=== PATIENT | male | born 1945 | race Caucasian/White ===

== ENCOUNTER → 2019-07-18 11:08 | Outpatient (CLI) | payer MEDICARE, SELFPAY ==
[2019-07-18 11:24] LABS: Basophils # 0.1 K/mm3 (0-0.2); Basophils % 0.4 % (0.1-2.0); Eosinophils # 0.2 K/mm3 (0.0-0.4); Eosinophils % 1.2 % (0.1-12.0); Hematocrit 44.7 % (42.0-52.0); Hemoglobin 14.7 g/dL (14.1-18.0); Lymphocytes # 2.5 K/mm3 (0.7-4.5); Lymphocytes % 19.9 % (10-50); Mean Corpuscular HGB Conc 32.9 g/dL (31.8-35.4); Mean Corpuscular Hemoglobin 31.6 pg (27.0-31.2); Mean Corpuscular Volume 95.9 fl (80-94); Mean Platelet Volume 6.7 fl (7.4-10.4); Monocytes # 0.9 K/mm3 (0.1-1.0); Monocytes % 7.4 % (1.7-9.3); Neutrophils % 71.1 % (37.0-80.0); Platelet Count 286 K/mm3 (142-424); Red Blood Count 4.66 M/mm3 (4.60-6.20); Red Cell Distribution Width 13.2 % (11.5-17.5); White Blood Count 12.7 K/mm3 (4.8-10.8)
[2019-07-18 12:36] LABS: Anion Gap 14.1 mEq/L (5-15); Blood Urea Nitrogen 13 mg/dL (7-18); Calcium 9.3 mg/dL (8.5-10.1); Carbon Dioxide 29 mmol/L (21.0-32.0); Chloride 98 mmol/L (98-107); Estimated Glomerular Filt Rate 65 ml/min (>60); GFR (African American) 79 ML/MIN (>60); Glucose 107 mg/dL (74-106); Potassium 4.1 mmoL/L (3.5-5.1); Sodium 137 mmol/L (136-145); Thyroid Stimulating Hormone 5.75 uIU/ml (0.358-3.740)
== END ==
PROVIDERS: Visit Provider Internal Medicine Adolescent Medicine
DX: R41.0 Disorientation, unspecified (principal)
CPT/HCPCS: 36415; 80048; 84443; 85025

== ENCOUNTER → 2019-09-03 11:07 | Outpatient (CLI) | payer MEDICARE, SELFPAY ==
[2019-09-03 11:43] LABS: Basophils # 0.1 K/mm3 (0-0.2); Basophils % 0.7 % (0.1-2.0); Eosinophils # 0.4 K/mm3 (0.0-0.4); Eosinophils % 4.8 % (0.1-12.0); Hematocrit 40.5 % (42.0-52.0); Hemoglobin 13.2 g/dL (14.1-18.0); Lymphocytes # 2.5 K/mm3 (0.7-4.5); Lymphocytes % 29.1 % (10-50); Mean Corpuscular HGB Conc 32.6 g/dL (31.8-35.4); Mean Corpuscular Hemoglobin 30.5 pg (27.0-31.2); Mean Corpuscular Volume 93.6 fl (80-94); Mean Platelet Volume 7.2 fl (7.4-10.4); Monocytes # 0.5 K/mm3 (0.1-1.0); Monocytes % 5.8 % (1.7-9.3); Neutrophils # 5.2 K/mm3 (1.8-7.8); Neutrophils % 59.6 % (37.0-80.0); Platelet Count 247 K/mm3 (142-424); Red Blood Count 4.32 M/mm3 (4.60-6.20); Red Cell Distribution Width 13.5 % (11.5-17.5); White Blood Count 8.7 K/mm3 (4.8-10.8)
[2019-09-03 15:29] LABS: Alanine Aminotransferase 15 U/L (12-78); Albumin Level 3.8 gm/dL (3.4-5.0); Alkaline Phosphatase 66 U/L (46-116); Anion Gap 12.7 mEq/L (5-15); Aspartate Amino Transferase 16 U/L (15-37); Bilirubin,Total 0.4 mg/dL (0.2-1.0); Blood Urea Nitrogen 10 mg/dL (7-18); Calcium 9.1 mg/dL (8.5-10.1); Carbon Dioxide 30 mmol/L (21.0-32.0); Chloride 103 mmol/L (98-107); Creatinine,Serum 1.15 mg/dL (0.70-1.30); Estimated Glomerular Filt Rate 62 ml/min (>60); Free Thyroxine Index 2.7 ug/dL (5.93-13.13); GFR (African American) 75 ML/MIN (>60); Glucose 92 mg/dL (74-106); Potassium 4.7 mmoL/L (3.5-5.1); Sodium 141 mmol/L (136-145); Thyroid Stimulating Hormone 1.42 uIU/ml (0.358-3.740); Total Protein,Serum 7.8 gm/dL (6.4-8.2); Triiodothryronine (T3) Uptake 34 % (31-39)
[2019-09-04 17:16] LABS: Vitamin B12 256 pg/mL (232-1245)
== END ==
PROVIDERS: Visit Provider Internal Medicine Adolescent Medicine
DX: E03.9 Hypothyroidism, unspecified (principal); E53.8 Deficiency of other specified B group vitamins; I25.10 Atherosclerotic heart disease of native coronary artery without angina pectoris
CPT/HCPCS: 36415; 80053; 82607; 84436; 84443; 84479; 85025

== ENCOUNTER 2020-12-16 11:55 | Observation (INO) | payer MEDICARE, SELFPAY ==
[2020-12-16] VITALS (24 sets, daily range): BP systolic 87–140; BP diastolic 45–84; PULSE 60–88; RESP 13–22; TEMP 36.7–37.2; O2SAT 90–99; BMI 23.6; BMI 25.2
--- NOTE | 2020-12-16 | IR_ITS ---
APPROVED REPORT [facility] Manager: SUNNY Guerrero RT (R) PROCEDURES Left heart catheterization Left ventriculogram Selective coronary angiogram INDICATION Acute anterior ST elevation myocardial infarction Informed consent was obtained prior to the procedure. COMPLICATIONS None Estimated Blood Loss: less than 10ml TECHNIQUE One percent lidocaine used to anesthetize the right anterior aspect of the wrist. The right radial artery was accessed via the Seldinger technique. A 6 [place] sheath was placed in the right radial artery. 2.5 mg of verapamil, 800 mcg of nitroglycerin, 1mg Lidocaine and 5000 U Heparin were given through the arterial sheath. The Poppa catheter was also used to perform left heart catheterization, left ventriculogram and selective coronary angiogram. At the end of the procedure the sheath was removed good hemostasis was achieved using Traclet band, patient was transferred to the postop holding area in stable condition. ANGIOGRAPHIC RESULTS The left main artery Normal The left anterior descending artery Has mild proximal 10% stenoses mid vessel 10 to 20% stenosis. A moderate sized first diagonal artery has a 30 to 40% stenosis The circumflex artery Is a large codominant vessel with mild mid vessel 20% stenoses The right coronary artery Is a codominant vessel with proximal and mid vessel 20% stenosis there is a distal concentric 30% stenosis and a 40% stenosis in the posterior descending artery The ROBLES ventriculogram reveals Hyperdynamic at 70% The left ventricular end-diastolic pressure 10 mmHg IMPRESSION Nonflow-limiting coronary disease Slightly hyperdynamic ventricle Normal left ventricular end-diastolic pressure Patient most likely is experiencing pericarditis. If the troponins turn positive then there is pericarditis combined with myocarditis. PLAN 1. Supportive care 2. Echocardiogram to determine if pericardial effusion is present Electronically signed by : Eliseo Aldridge, 12/16/2020 13:48:37
--- NOTE | 2020-12-16 12:39 | HMH.EDABDPAI ---
ED Disposition Clinical Impression: Weakness Disposition: Still a Patient Condition on Discharge: Fair Time of Disposition: 14:07 - Critical Care Critical Care Time: Yes (STEMI) Attestation: On 12/16/20, the high probability of a clinically significant, sudden or life threatening deterioration of the following system(s) required my full and direct attention, intervention and personal management. The time I documented below is in addition to time spent performing reported procedures but includes the following listed in this critical care notation. Total Critical Care Time: 35 Vital system(s) involved:: Circulatory Failure My critical care processes included: Assessment & monitoring of V/S, Data Review/Interpretation, Documentation Comment: No circulatory failure, but Code STEMI activated Medical Decision Making - Efra Inquiry Pt receiving controlled substance: No Vital Signs: 12/16/20 11:56 12/16/20 12:26 12/16/20 13:00 Temperature 98.9 F Temperature Source Oral Pulse Rate Pulse Rate [Left Radial] 78 78 80 Respiratory Rate 18 22 Blood Pressure Blood Pressure [Right Arm] 140/84 116/69 125/76 Blood Pressure Mean [Right Arm] 102 84 92 Blood Pressure Source Blood Pressure Source [Right Arm] Automatic Cuff Automatic Cuff Automatic Cuff Blood Pressure Position Blood Pressure Position [Right Arm] Sitting Sitting Sitting 02 Sat by Pulse Oximetry 99 90 L Oxygen Delivery Method Room Air Room Air 12/16/20 13:25 12/16/20 13:37 12/16/20 13:40 Temperature 98.9 F Temperature Source Oral Pulse Rate 80 Pulse Rate [Left Radial] 84 84 Respiratory Rate 20 13 16 Blood Pressure 125/76 Blood Pressure [Right Arm] 92/51 L 90/45 L Blood Pressure Mean [Right Arm] 64 60 Blood Pressure Source Automatic Cuff Blood Pressure Source [Right Arm] Blood Pressure Position Sitting Blood Pressure Position [Right Arm] 02 Sat by Pulse Oximetry 95 93 L Oxygen Delivery Method Room Air Simple Mask Simple Mask 12/16/20 13:45 12/16/20 13:50 12/16/20 13:51 Temperature Temperature Source Pulse Rate 78 Pulse Rate [Left Radial] 84 80 Respiratory Rate 14 17 Blood Pressure Blood Pressure [Right Arm] 87/47 L 101/51 L Blood Pressure Mean [Right Arm] 60 67 Blood Pressure Source Blood Pressure Source [Right Arm] Blood Pressure Position Blood Pressure Position [Right Arm] 02 Sat by Pulse Oximetry 95 97 Oxygen Delivery Method Simple Mask Simple Mask - Lab Data Lab Results 12/16/20 12:52: WBC 13.2 H, RBC 4.61, Hgb 14.4, Hct 43.5, MCV 94.5 H, MCH 31.2, MCHC 33.1, RDW 15.1, Plt Count 301, MPV 7.2 L, Neut % (Auto) 80.1 H, Lymph % (Auto) 13.2, [place] % (Auto) 6.3, Eos % (Auto) 0.1, Baso % (Auto) 0.3, Neut # (Auto) 10.6 H, Lymph # (Auto) 1.8, [place] # (Auto) 0.8, Eos # (Auto) 0.0, Baso # (Auto) 0.0 12/16/20 12:52: Sodium 135 L, Potassium 4.3, Chloride 99, Carbon Dioxide 29, Anion Gap 11.3, BUN 12, Creatinine 1.10, Estimated Creat Clear 61, Estimated GFR 65, Est GFR ( Amer) 79, Glucose 125 H, Calcium 9.6, Total Bilirubin 1.6 H, AST 27, ALT 16, Alkaline Phosphatase 76, Troponin I < 0.01, Total Protein 8.7 H, Albumin 4.4, Globulin 4.3 H, Albumin/Globulin Ratio 1.0 L, Lipase 56 Result diagrams: 12/16/20 12:52 12/16/20 12:52 Orders (Tests/Meds): ED MEDICATIONS Generic Name Dose Route Start Last Admin Trade Name Freq PRN Reason Stop Dose Admin Fentanyl Citrate 25 mcg 12/16/20 13:06 12/16/20 13:26 Fentanyl 100mcg/2ml Vial IV 12/17/20 13:08 100 mcg Q3MINP PRN Administration Moderate to Severe Pain Fentanyl Citrate 50 mcg 12/16/20 13:06 Fentanyl 100mcg/2ml Vial IV 12/17/20 13:08 Q3MINP PRN Moderate to Severe Pain Fentanyl Citrate 25 mcg 12/16/20 13:06 Fentanyl 250mcg/5ml Vial IV 12/17/20 13:07 Q3MINP PRN Moderate to Severe Pain Fentanyl Citrate 50 mcg 12/16/20 13:06 Fentanyl 250mcg/5ml Vial IV 12/17/20 13:07 Q3MIN
--- NOTE | 2020-12-16 13:02 | ECG_ITS ---
APPROVED REPORT Exam: Resting ECG HR:88 bpm ECG Measurements Heart Rate 88 AXES QRSd 124 QRS -3 QT 400 T 25 QTc 484 Conclusion NSR with Right bundle branch block Artifact limits interpretation Abnormal ECG Electronically signed by : Perico Brady, 12/16/2020 16:33:15
--- NOTE | 2020-12-16 13:03 | PC.NURSE ---
12 lead EKG sent to [facility].
--- NOTE | 2020-12-16 13:05 | PC.NURSE ---
Luis Carlos called and confirmed STEMI. STEMI alert called over head at this time.
[2020-12-16 13:10] LABS: Basophils % 0.3 % (0.1-2.0); Chloride 99 mmol/L (98-107); Eosinophils % 0.1 % (0.1-12.0); Hematocrit 43.5 % (42.0-52.0); Hemoglobin 14.4 g/dL (14.1-18.0); Lymphocytes # 1.8 K/mm3 (0.7-4.5); Lymphocytes % 13.2 % (10-50); Mean Corpuscular HGB Conc 33.1 g/dL (31.8-35.4); Mean Corpuscular Hemoglobin 31.2 pg (27.0-31.2); Mean Corpuscular Volume 94.5 fl (80-94); Mean Platelet Volume 7.2 fl (7.4-10.4); Monocytes # 0.8 K/mm3 (0.1-1.0); Monocytes % 6.3 % (1.7-9.3); Neutrophils # 10.6 K/mm3 (1.8-7.8); Neutrophils % 80.1 % (37.0-80.0); Platelet Count 301 K/mm3 (142-424); Red Blood Count 4.61 M/mm3 (4.60-6.20); Red Cell Distribution Width 15.1 % (11.5-17.5); Sodium 135 mmol/L (136-145); White Blood Count 13.2 K/mm3 (4.8-10.8)
[2020-12-16 13:11] LABS: Potassium 4.3 mmoL/L (3.5-5.1)
[2020-12-16 13:13] LABS: Alanine Aminotransferase 16 U/L (12-78); Alkaline Phosphatase 76 U/L (38-126); Anion Gap 11.3 mEq/L (5-15); Aspartate Amino Transferase 27 U/L (17-59); Bilirubin,Total 1.6 mg/dl (0.2-1.3); Blood Urea Nitrogen 12 mg/dl (9-20); Carbon Dioxide 29 mmol/L (22.0-30.0); Creatinine Clearance Estimated 61 mL/min (50-200); Estimated Glomerular Filt Rate 65 ml/min (>60); GFR (African American) 79 ML/MIN (>60); Lipase 56 U/L (23-300)
[2020-12-16 13:14] LABS: Albumin Level 4.4 g/dl (3.5-5.0); Calcium 9.6 mg/dl (8.4-10.2); Globulin 4.3 g/dL (1.3-3.2); Glucose 125 mg/dl (74-100); Total Protein,Serum 8.7 g/dl (6.3-8.2)
--- NOTE | 2020-12-16 13:18 | PC.NURSE ---
Acute [place] shown on EKG, Sent to Luis Carlos.. Luis Carlos called stating this was a Stemi to bring pt to airport maintenance laborer at this moment. Pt taken to airport maintenance laborer for further intervention.
--- NOTE | 2020-12-16 13:18 | PC.NURSE ---
office staff states dr. rey is off today and dr. perkins is not in the office at this time. screen printing machine operator paging dr. perkins
[2020-12-16 13:26] LABS: Troponin I < 0.01 ng/ml (0.00-0.034)
--- NOTE | 2020-12-16 13:26 | HMH.CNCARD ---
History of Present Illness Consult date: 12/16/20 Consult reason: chest pain Chief complaint: STEMI Additional Medical History:: 1. HTN 2. Hypothyroid 3. History of skin canceer 4. Dementia History of present illness: 75yo M with past medical history significant for hypothyroid, recent Covid presents to the emergency department acting brought in by his with complaints of abdominal pain. Family reports the patient was constipated and started on a bowel regimen and now has loose stool. Patient reports I hurt everywhere. He is unable to further differentiate or delineate any symptoms he is having. Family reports the patient has been less mobile since he had Covid. Patient is unable to provide any additional information at this time. The above per ER MD, Dr. Vo. Pt has dementia so pertinent history obtained from chart and family. [facility] History Medical History: Reports:: Cancer (SKIN) *Have you ever received a pneumonia vaccine?: No *Have you received a flu vaccine this season?: No - *Social History Smoking Status: Current every day smoker Tobacco Type: cigarettes # Packs/Day (cigarettes): 1 Alcohol Intake: never *Occupational Status:: retired Housing: house Household Members: spouse *Travel in the last 8 weeks: Inside the [facility] Family Hx:: Non-contributory Meds Home Medications Medication Instructions Recorded Confirmed Type Aspirin [Aspir 81] 81 mg PO DAILY 10/08/19 10/08/19 History Levothyroxine Sodium 50 mcg PO DAILY 10/08/19 10/08/19 History [Levothyroxine 50mcg (0.05mg) Tab] Omeprazole 20 mg PO DAILY 10/08/19 10/08/19 History Allergies Allergy/AdvReac Type Severity Reaction Status Date / Time No Known Allergies Allergy Verified 12/30/19 11:34 Exam Vital signs and Labs for Last 24 Hours: Temp Pulse Resp BP Pulse Ox 98.9 F 80 22 125/76 90 L 12/16/20 11:56 12/16/20 13:00 12/16/20 12:26 12/16/20 13:00 12/16/20 12:26 Laboratory Results - last 24 hr 12/16/20 12:52: WBC 13.2 H, RBC 4.61, Hgb 14.4, Hct 43.5, MCV 94.5 H, MCH 31.2, MCHC 33.1, RDW 15.1, Plt Count 301, MPV 7.2 L, Neut % (Auto) 80.1 H, Lymph % (Auto) 13.2, [place] % (Auto) 6.3, Eos % (Auto) 0.1, Baso % (Auto) 0.3, Neut # (Auto) 10.6 H, Lymph # (Auto) 1.8, [place] # (Auto) 0.8, Eos # (Auto) 0.0, Baso # (Auto) 0.0 12/16/20 12:52: Sodium 135 L, Potassium 4.3, Chloride 99, Carbon Dioxide 29, Anion Gap 11.3, BUN 12, Creatinine 1.10, Estimated Creat Clear 61, Estimated GFR 65, Est GFR ( Amer) 79, Glucose 125 H, Calcium 9.6, Total Bilirubin 1.6 H, AST 27, ALT 16, Alkaline Phosphatase 76, Total Protein 8.7 H, Albumin 4.4, Globulin 4.3 H, Albumin/Globulin Ratio 1.0 L, Lipase 56 I & O for Last 24 hours: Intake & Output 12/14/20 12/15/20 12/16/20 12/17/20 11:59 11:59 11:59 11:59 Weight 165 lb - Constitutional no acute distress - *Routine HEENT Exam Head: Present: normocephalic Eye: Present: EOMI, PERRL ENT: Present: mucous membranes moist - *Routine Neck Exam Present: supple. Absent: lymphadenopathy - *Routine Respiratory Exam Present: CTA bilaterally - *Routine Cardiovascular Exam Present: RRR - *Routine Abdominal Exam Present: soft, normoactive bowel sounds. Absent: tenderness - *Routine Extremities Exam Absent: cyanosis, clubbing, edema - *Routine Skin Exam Present: warm. Absent: rash - *Routine Neurological Exam Present: alert, oriented X3 Review of Systems - Review of Systems Review of systems:: unable to obtain Assessment and Plan (1) STEMI (ST elevation myocardial infarction) Status: Acute Category: Medical Code(s): I21.3 - ST elevation (STEMI) myocardial infarction of unspecified site (2) Hypothyroidism Status: Acute Category: Medical Code(s): E03.9 - Hypothyroidism, unspecified (3) History of COVID-19 Status: Acute Category: Medical Code(s): Z86.16 - Personal history of COVID-19 (4) Dementia Status: Acute Qualifiers:
--- NOTE | 2020-12-16 13:40 | CA_ITS ---
APPROVED REPORT EXAM: Comprehensive 2D, Doppler, and color-flow Echocardiogram Patient Relations Specialist: Amy Gusman RVT Ht: 5 ft 10 in Wt: 165lbs BSA: 1.92 BP: 116/69 mmHg Indications: STEMI,RECENT COVID,R/O PERICARDITIS,HTN,SMOKER,DEMENTIA TDS-PT FLAT ON BACK POST CATH 2D Dimensions LVOT 1.70 cm (M/F) 1.5-2.5 M-Mode Dimensions RVDd 2.42 cm (0.9-2.6) LA Diam 4.16 cm (1.9-4.0) LVDd 4.88 cm (3.5-5.7) Ao Diam 2.98 cm (2.0-3.7) LVDs 3.61 cm (3.5-5.7) IVSd 0.76 cm (0.6-1.1) PWd 1.10 cm (0.6-1.1) EF (Teich) 50.90% FS 26.00% EDV (Teich) 111.70 mL ESV (Teich) 54.80 mL LV Diastology E Decel Time 200.00 (160-240 msec) E/A Ratio 0.9 MED E' 7.00 (< 7 cm/sec) E'/MED E' Ratio 7.40 (>14) LAT E' 6.80 (<10 cm/sec) E/LAT E' Ratio 7.62 (>14) Mitral Valve MV E Max Alli. 52.00 (40-130 cm/s) MV A Velocity 61.00 (40-130 cm/s) E/A Ratio 0.85 MV Decel. Time 200.00 (160-240 ms) MV PHT 59.00 ms Pulmonary Valve PV Peak Velocity 73.00 (50-150 cm/s) Left Ventricle Technically difficult study because of the patient factors and poor acoustic windows. Left atrium is mildly enlarged, left ventricle is normal size, mild concentric left ventricular hypertrophy, visually estimated ejection fraction 55% with no regional wall motion abnormality. Grade 1 diastolic dysfunction seen without tissue Doppler evidence of raise left atrial pressure. Right Ventricle Right atrium and right ventricle are mildly enlarged with normal contractility. Aortic Valve Aortic valve is thickened and calcified leaflet continue to display mobility, there is no aortic stenosis or aortic insufficiency. Mitral Valve Mitral valve is grossly normal, there is mild mitral regurgitation. Tricuspid Valve Tricuspid valve grossly normal, there is mild tricuspid regurgitation, tricuspid regurgitation jet velocity is inadequate for calculation of the right ventricular systolic pressure. Pulmonic Valve Pulmonic valve is poorly visualized. Great Vessels Aortic root is normal size. Pericardium No significant pericardial effusion noted. Conclusion 1. Mild biatrial enlargement, normal left ventricular size, mild concentric left ventricular hypertrophy, visually estimated ejection fraction 55% with no regional wall motion abnormality, grade 1 diastolic dysfunction seen without tissue Doppler evidence of raise left atrial pressure. 2. Mildly enlarged right ventricle with normal contractility. 3. Thickened and calcified aortic valve without aortic stenosis or aortic insufficiency. 4. Mild mitral and tricuspid regurgitation. 5. No significant pericardial effusion noted. Electronically signed by : Anibal Zapata, 12/16/2020 19:53:36
[2020-12-16 14:42] LABS: Coronavirus 19 IgG Antibody Positive (Negative); Coronavirus 19 IgM Antibody Negative (Negative)
--- NOTE | 2020-12-16 14:57 | PC.NURSE ---
giuseppe brought patient from lab asst
--- NOTE | 2020-12-16 15:07 | PC.NURSE ---
pt has cup at bedside. pt still well sedated from r and d lab technician.
--- NOTE | 2020-12-16 16:14 | CT_ITS ---
PROCEDURE: CT ABDOMEN PELVIS W CON CLINICAL INDICATION: abdominal pain Constipation, unknown hx due to pt condition COMPARISON: No exams were available for comparison TECHNIQUE: IV Contrast: 75ML Isovue 370 Oral Contrast None Axial images obtained with sagittal and coronal reformats. All CT scans at the facility use one or more dose reduction, viz: automated exposure control, ma/kV adjustment per patient size (including targeted exams where dose is matched to indication, i.e. head), or iterative reconstruction technique. FINDINGS: LOWER THORAX: There are small bilateral pleural effusions left greater than right with adjacent compressive atelectasis. A small rounded lucency is noted within the atelectatic lung right and may represent a small pneumatocele. Coronary artery calcifications and/or stents noted ABDOMEN & PELVIS: The liver, gallbladder, spleen, adrenal glands, pancreas, and kidneys have an unremarkable appearance. There is mild ectasia of the mid abdominal aorta 2.2 cm. No evidence of appendicitis or diverticulitis. No intestinal obstruction or free air. There is a mild amount of retained colonic feces. Prostate is slightly enlarged at 4.8 cm. Osteoarthritic changes are present in the hips. There is grade 1 spondylitic spondylolisthesis at L5-S1 with degenerative changes noted in the lumbar spine. There is a tiny umbilical hernia containing fat. IMPRESSION: 1. No acute abdominal or pelvic findings. 2. Bibasilar atelectasis with small bilateral pleural effusions 3. Other nonacute findings as described above Dictated by: Herber Wood MD 12/17/2020 05:03 Herber Wood MD in [place] 12/17/2020 05:03
--- NOTE | 2020-12-16 16:27 | HMH.PHAVTE ---
[facility] Pharmacy VTE Monitoring - Patient Demographics Admission date: 12/16/20 Report Date: 12/16/20 Time: 16:27 Allergies/Adverse Reactions: Patient Allergies No Known Allergies Allergy (Verified 12/16/20 14:27) Height: 1.7 m Weight: 73.198 kg Patient Problems: Current Active Problems Dementia (Acute) STEMI (ST elevation myocardial infarction) (Acute) Hypothyroidism (Acute) History of COVID-19 (Acute) Weakness (Acute) - VTE Risk Labs: VTE Related Lab Results Hgb 14.4 g/dL (14.1-18.0) 12/16/20 12:52 Hct 43.5 % (42.0-52.0) 12/16/20 12:52 Plt Count 301 K/mm3 (142-424) 12/16/20 12:52 BUN 12 mg/dl (9-20) 12/16/20 12:52 Creatinine 1.10 mg/dl (0.66-1.25) 12/16/20 12:52 Estimated Creat Clear 61 mL/min (50-200) 12/16/20 12:52 - Prophylaxis VTE Prophylaxis Ordered?: Yes Types of VTE Prophylaxis: TEDS Knee High Location of Applied Device: Bilateral Lower Extremeties
--- NOTE | 2020-12-16 17:15 | HMH.HP ---
*Admission Date: 12/16/20 *Chief complaint: abdominal pain *History of present illness: Mr. Carlos is an irritable 75-year-old gentleman with dementia, hypothyroid, recent Covid diagnosis who presented to the emergency department via his with complaint of abdominal pain. Of note he was seen in our office on Saturday for the same complaint and at that time determined to be constipated as he had not had a bowel movement in over 5 days. He was started on stool softener and bowel regimen with goal of 1-2 soft bowel movements a day. On arrival to the ER his family reported similarly to above that Mr. Carlos was constipated and started on a bowel regimen and now has loose stool. Patient reports I hurt everywhere. He is unable to further differentiate or delineate any symptoms he is having. Family reported he has been less active than usual because of his recent Covid diagnosis and has been more fatigued. Patient is unable to provide any additional information on interview. ER work-up initiated including basic labs, EKG. Concern on EKG for acute NM, troponin normal (nondetectable), mild leukocytosis, and positive Covid IgG. Due to suspicious findings on EKG, STEMI alert was activated and patient was taken to the Entry Level. Per cath report, IMPRESSION: Nonflow-limiting coronary disease Slightly hyperdynamic ventricle Normal left ventricular end-diastolic pressure Patient most likely is experiencing pericarditis. If the troponins turn positive then there is pericarditis combined with myocarditis. PLAN 1. Supportive care 2. Echocardiogram to determine if pericardial effusion is present. Extensive discussion was had given the above findings, in the setting of still unclear etiology of patient's pain, it was determined the patient needed further assessment and observation prior to being deemed clinically stable for discharge home. Patient was therefore admitted to medicine for further management given his absence of NM. [facility] History I have reviewed the patient's past medical history: Yes (Obtained from our clinic charts) Medical History: Reports:: Cancer (SKIN), Coronary Artery Disease, Dementia *Have you ever received a pneumonia vaccine?: Yes *Have you received a flu vaccine this season?: Yes Other Medical History: Reports: Hypothyroidism Other Surgeries: Yes: Angioplasty, Appendectomy - *Social History Smoking Status: Current every day smoker Tobacco Type: cigarettes # Packs/Day (cigarettes): 1 Alcohol Intake: never *Occupational Status:: retired Housing: house Household Members: spouse *Travel in the last 8 weeks: None Family Hx:: Unable to obtain Review of Systems - Review of Systems Review of systems:: unable to obtain (Due to patient's mental status) Meds Home Medications Medication Instructions Recorded Confirmed Type Aspirin [Aspir 81] 81 mg PO DAILY 10/08/19 12/16/20 History Levothyroxine Sodium 50 mcg PO DAILY 10/08/19 12/16/20 History [Levothyroxine 50mcg (0.05mg) Tab] Omeprazole 20 mg PO DAILY 10/08/19 12/16/20 History Citalopram Hydrobromide 20 mg PO HS 12/16/20 12/16/20 History [Citalopram 20mg Tablet] Donepezil HCl [Donepezil ODT 10mg] 10 mg PO HS 12/16/20 12/16/20 History Quetiapine Fumarate [Quetiapine 25 mg PO NEEDED PRN 12/16/20 12/16/20 History Fumarate ER] Allergies Allergy/AdvReac Type Severity Reaction Status Date / Time No Known Allergies Allergy Verified 12/16/20 14:27 Exam Vital signs and Labs for Last 24 Hours: Temp Pulse Resp BP Pulse Ox 98.0 F 60 16 98/62 L 90 L 12/16/20 15:26 12/16/20 16:00 12/16/20 15:26 12/16/20 15:26 12/16/20 15:26 Laboratory Results - last 24 hr 12/16/20 12:52: WBC 13.2 H, RBC 4.61, Hgb 14.4, Hct 43.5, MCV 94.5 H, MCH 31.2, MCHC 33.1, RDW 15.1, Plt Count 301, MPV 7.2 L, Neut % (Auto) 80.1 H, Lymph % (Auto) 13.2, [place] % (Auto) 6.3, Eos % (Auto) 0.1, Baso % (Auto) 0.3, Neut # (Auto) 10.6 H, Lymph # (Auto) 1.8, [place] # (A
[2020-12-16 17:18] LABS: Troponin I < 0.01 ng/ml (0.00-0.034)
--- NOTE | 2020-12-16 19:11 | PC.NURSE ---
PT BACK TO THE FLOOR VIA BED FROM [facility] W/STAFF AT THIS TIME
[2020-12-16 20:20] LABS: Troponin I < 0.01 ng/ml (0.00-0.034)
[2020-12-17] VITALS: BP 118/60; PULSE 106; PULSE 80; RESP 22; TEMP 37.3; O2SAT 92
--- NOTE | 2020-12-17 03:59 | PC.NURSE ---
Pt has been very irritable and combative with care this shift. When attempting to care for pt, he uses profanity very loudly and attempts to grab at staff. Pt has pulled at his IV with new one replaced. Pt attempted to pull out new PIV, coband wrapped around PIV to ensure it stays patent and in place. Pt has had two very large, loose bowel movements this shift. Lt radial cath site dressing remains CDI, with no hematoma noted. Pt offered a dinner tray at the beginning of shift, and when staff attempted to feed him, pt would yell at them to get out . Lung sounds remain diminished t/o w/ coarse crackles noted to Bilat bases. No cough noted this shift. NO edema noted to extremities. No other acute changes or complaints at this time.
[2020-12-17 04:00] VITALS: BP 133/60; PULSE 75; PULSE 80; RESP 16; TEMP 37.3; O2SAT 91
[2020-12-17 04:57] VITALS: BMI 24.1
[2020-12-17 07:13] LABS: Basophils # 0.1 K/mm3 (0-0.2); Basophils % 0.4 % (0.1-2.0); Eosinophils # 0.1 K/mm3 (0.0-0.4); Eosinophils % 0.8 % (0.1-12.0); Hematocrit 38.7 % (42.0-52.0); Lymphocytes # 2.3 K/mm3 (0.7-4.5); Lymphocytes % 20.8 % (10-50); Mean Corpuscular HGB Conc 33.6 g/dL (31.8-35.4); Mean Corpuscular Hemoglobin 31.1 pg (27.0-31.2); Mean Corpuscular Volume 92.6 fl (80-94); Mean Platelet Volume 6.9 fl (7.4-10.4); Monocytes # 0.6 K/mm3 (0.1-1.0); Monocytes % 5.6 % (1.7-9.3); Neutrophils # 8.1 K/mm3 (1.8-7.8); Neutrophils % 72.4 % (37.0-80.0); Platelet Count 284 K/mm3 (142-424); Red Blood Count 4.18 M/mm3 (4.60-6.20); Red Cell Distribution Width 15.1 % (11.5-17.5); White Blood Count 11.2 K/mm3 (4.8-10.8)
--- NOTE | 2020-12-17 07:16 | HMH.DCSUM ---
General - General Admission date:: 12/16/20 Discharge date: 12/17/20 HPI HPI: Mr. Carlos is an irritable 75-year-old gentleman with dementia, hypothyroid, recent Covid diagnosis who presented to the emergency department via his with complaint of abdominal pain. Of note he was seen in our office on Saturday for the same complaint and at that time determined to be constipated as he had not had a bowel movement in over 5 days. He was started on stool softener and bowel regimen with goal of 1-2 soft bowel movements a day. On arrival to the ER his family reported similarly to above that Mr. Carlos was constipated and started on a bowel regimen and now has loose stool. Patient reports I hurt everywhere. He is unable to further differentiate or delineate any symptoms he is having. Family reported he has been less active than usual because of his recent Covid diagnosis and has been more fatigued. Patient is unable to provide any additional information on interview. ER work-up initiated including basic labs, EKG. Concern on EKG for acute WA, troponin normal (nondetectable), mild leukocytosis, and positive Covid IgG. Due to suspicious findings on EKG, STEMI alert was activated and patient was taken to the [facility]. Per cath report, IMPRESSION: Nonflow-limiting coronary disease Slightly hyperdynamic ventricle Normal left ventricular end-diastolic pressure Patient most likely is experiencing pericarditis. If the troponins turn positive then there is pericarditis combined with myocarditis. PLAN 1. Supportive care 2. Echocardiogram to determine if pericardial effusion is present. Extensive discussion was had given the above findings, in the setting of still unclear etiology of patient's pain, it was determined the patient needed further assessment and observation prior to being deemed clinically stable for discharge home. Patient was therefore admitted to medicine for further management given his absence of WA. Hospital Course Hospital Course: Mr. Carlos was observed overnight after his left heart cath. Serial troponins remained appropriate. No further episodes of significant pain or chest pain. Had 2 large bowel movements overnight which seem to improve his belly pain. CT of the abdomen was obtained showing moderate stool burden consistent with constipation. At this time suspect his dementia and inability to communicate where his pain is led to his admission. Recommend continued aggressive bowel regimen to maintain 1-2 soft stools a day. Patient medically stable to discharge home. Denies shortness of breath, chest pain, nausea, vomiting. Spoke with family this morning, they are comfortable with plan on taking patient home. No new medications from a cardiac standpoint Objective Vital signs: Temp Pulse Resp BP Pulse Ox 99.2 F 75 16 133/60 91 L 12/17/20 04:00 12/17/20 04:00 12/17/20 04:00 12/17/20 04:00 12/17/20 04:00 Narrative: - Constitutional awake, alert, NAD. - *Routine HEENT Exam Head: Present: normocephalic Eye: Present: EOMI, PERRL ENT: Present: mucous membranes moist - *Routine Neck Exam Present: supple. Absent: lymphadenopathy - *Routine Respiratory Exam Present: CTA bilaterally - *Routine Cardiovascular Exam Present: RRR - *Routine Abdominal Exam Present: soft, normoactive bowel sounds, Non tender, not distended - *Routine Extremities Exam Absent: cyanosis, clubbing, edema - *Routine Skin Exam Present: warm. Absent: rash - *Routine Neurological Exam Present: alert, oriented to person Results Labs on day of discharge: Labs from last 24 hours 12/17/20 12/16/20 12/16/20 06:35 19:30 16:25 WBC 11.2 H RBC 4.18 L Hgb 13.0 L Hct 38.7 L MCV 92.6 MCH 31.1 MCHC 33.6 RDW 15.1 Plt Count 284 MPV 6.9 L Neut % (Auto) 72.4 Lymph % (Auto) 20.8 [place] % (Auto) 5.6 Eos % (Auto) 0.8 Baso % (Auto) 0.4 Neut #
[2020-12-17 07:22] LABS: Alanine Aminotransferase 12 U/L (12-78); Albumin Level 3.9 g/dl (3.5-5.0); Alkaline Phosphatase 71 U/L (38-126); Anion Gap 12.1 mEq/L (5-15); Aspartate Amino Transferase 22 U/L (17-59); Bilirubin,Total 1.1 mg/dl (0.2-1.3); Blood Urea Nitrogen 12 mg/dl (9-20); Calcium 9.2 mg/dl (8.4-10.2); Carbon Dioxide 27 mmol/L (22.0-30.0); Chloride 99 mmol/L (98-107); Creatinine Clearance Estimated 57 mL/min (50-200); Estimated Glomerular Filt Rate 65 ml/min (>60); GFR (African American) 79 ML/MIN (>60); Globulin 4.1 g/dL (1.3-3.2); Glucose 101 mg/dl (74-100); Magnesium 2.2 mg/dl (1.6-2.3); Potassium 4.1 mmoL/L (3.5-5.1); Sodium 134 mmol/L (136-145)
[2020-12-17 08:00] VITALS: BP 103/67; PULSE 76; RESP 16; TEMP 37.3; O2SAT 91
== END 2020-12-17 11:00 | disposition home or self-care (01) ==
LOC: ER 13:38 → CATHLAB 13:54 → 2ND 13:55
PROVIDERS: Internal Medicine; Admitting Provider Internal Medicine Adolescent Medicine; Emergency Provider Family Medicine; PCP Internal Medicine Adolescent Medicine; Visit Provider Internal Medicine Adolescent Medicine
DX: I21.02 ST elevation (STEMI) myocardial infarction involving left anterior descending coronary artery (principal); E03.9 Hypothyroidism, unspecified; I10 Essential (primary) hypertension; Z86.16 Personal history of COVID-19; Z72.0 Tobacco use; F03.90 Unspecified dementia, unspecified severity, without behavioral disturbance, psychotic disturbance, mood disturbance, and anxiety; K59.01 Slow transit constipation; Z79.82 Long term (current) use of aspirin; Z79.899 Other long term (current) drug therapy
CPT/HCPCS: 36415; 74177; 80053; 83690; 83735; 84484; 85025; 86328; 93005; 93306; 93458; 99152; 99284; C1725; C1769; G0378; J1644; Q9967

== ENCOUNTER 2023-09-06 09:26 | Inpatient (IN) | payer OTHER, MEDICARE, SELFPAY ==
[2023-09-06] VITALS (13 sets, daily range): BP systolic 97–138; BP diastolic 59–77; PULSE 62–86; RESP 9–20; TEMP 37.1–38.3; O2SAT 94–97; BMI 23.0; BMI 25.2
--- NOTE | 2023-09-06 09:39 | ECG_ITS ---
APPROVED REPORT Exam: Resting ECG HR:87 bpm ECG Measurements Heart Rate 87 AXES ID 149 P 27 QRSd 127 QRS -38 QT 390 T 1 QTc 434 Conclusion SINUS RHYTHM LEFT AXIS DEVIATION [QRS AXIS < -30] RIGHT BUNDLE BRANCH BLOCK [120+ ms QRS DURATION, UPRIGHT V1, 40+ ms S IN I/aVL/V4/V5/V6] POSSIBLE SEPTAL MYOCARDIAL INFARCTION , PROBABLY OLD [30 ms Q WAVE IN V1/V2] ABNORMAL ECG UNCONFIRMED REPORT Electronically signed by : Perico Brady MD 09/07/2023 07:58:20
--- NOTE | 2023-09-06 09:39 | PC.NURSE ---
Dr. Giraldo at bedside, s/w family regarding code status. Family wishes for pt to be a DNR/DNI
--- NOTE | 2023-09-06 09:42 | XR_ITS ---
FINAL REPORT CLINICAL HISTORY: hypoxia ams FINDINGS: A single portable view of the chest was obtained. The heart size and pulmonary vascularity are within normal limits. The mediastinum is within normal limits. There is mild bibasilar atelectasis. The bony thorax is intact. IMPRESSION: Mild bibasilar atelectasis. Reviewed, Interpreted and Dictated by Jaden Callejas III, MD Transcribed by Grace Holden Authenticated and [facility]
--- NOTE | 2023-09-06 09:42 | CT_ITS ---
FINAL REPORT CLINICAL HISTORY: ams, hypoxia COMPARISON: 10/08/2019 FINDINGS: Axial images of the head were obtained without contrast. Coronal reformatted images were also obtained.This study was performed with techniques to keep radiation doses as low as reasonably achievable (ALARA). Individualized dose reduction techniques using automated exposure control or adjustment of mA and/or kV according to the patient's size were employed. There is no evidence of intracranial hemorrhage or mass. There is moderate ventriculomegaly most worrisome for worsening hydrocephalus. There is no evidence of shift of the midline structures. No abnormal extra axial fluid collection is identified. No skull abnormality is seen on the bone window images. There is mild mucosal thickening in the maxillary sinuses. IMPRESSION: Moderate ventriculomegaly worrisome for worsening hydrocephalus. Reviewed, Interpreted and Dictated by Jaden Callejas III, MD Transcribed by Grace Holden Authenticated and [facility]
--- NOTE | 2023-09-06 09:42 | CT_ITS ---
FINAL REPORT CLINICAL HISTORY: ams, hypoxia, abd tenderness FINDINGS: CT OF THE ABDOMEN AND PELVIS WITH CONTRAST Axial CT images of the abdomen and pelvis were obtained after the administration of oral and iv contrast. Coronal reformatted images were also obtained and reviewed.This study was performed with techniques to keep radiation doses as low as reasonably achievable (ALARA). Individualized dose reduction techniques using automated exposure control or adjustment of mA and/or kV according to the patient's size were employed. Abdomen: There are gallstones in the gallbladder. The liver has an unremarkable appearance, without evidence of mass or biliary ductal dilatation. The spleen is unremarkable. No adrenal mass is present. The pancreas has an unremarkable appearance. The kidneys are normal, without evidence of mass or hydronephrosis. The aorta is normal in caliber. There is no free fluid or adenopathy. No mass or abnormal fluid collection is seen. Pelvis: The appendix is not well-visualized. The urinary bladder is unremarkable. No inflammatory process is seen. There is no evidence of adenopathy. There is no evidence of bowel obstruction. There are bilateral inguinal hernias containing fat. Bilateral L5 pars defects are noted. There are degenerative changes in the lumbar spine and bilateral hips. IMPRESSION: Cholelithiasis. Reviewed, Interpreted and Dictated by Jaden Callejas III, MD Transcribed by Grace Holden Authenticated and [facility]
--- NOTE | 2023-09-06 09:42 | CT_ITS ---
FINAL REPORT CLINICAL HISTORY: Hypoxia, weakness FINDINGS: Thin section axial CT images of the chest were obtained with contrast. 3D reformatted images were also obtained. This study was performed with techniques to keep radiation doses as low as reasonably achievable (ALARA). Individualized dose reduction techniques using automated exposure control or adjustment of mA and/or kV according to the patient's size were employed. There is no evidence of pulmonary embolism. There is no evidence of thoracic aortic aneurysm or dissection. There is mild mediastinal adenopathy which may be reactive or neoplastic. Mild emphysematous changes are seen. There is no evidence of pulmonary mass or nodule. No localized inflammatory process is seen within the lungs. IMPRESSION: No evidence of pulmonary embolism or thoracic aortic dissection. Mild mediastinal adenopathy may be reactive or neoplastic. Reviewed, Interpreted and Dictated by Jaden Callejas III, MD Transcribed by Grace Holden Authenticated and [facility]
--- NOTE | 2023-09-06 09:44 | HMH.EDGENADL ---
Discharge Plan Disposition Patient Disposition: Admitted Clinical Impressions Clinical Impression: Altered mental status Qualifiers: Altered mental status type: coma Coma depth: [place] coma 3-8 Coma timing: in the field (EMT or ambulance) Qualified Code(s): R40.2431 - [place] coma scale score 3-8, in the field [EMT or ambulance] Sepsis Qualifiers: Sepsis type: sepsis due to unspecified organism Sepsis acute organ dysfunction status: unspecified Qualified Code(s): A41.9 - Sepsis, unspecified organism Urinary tract infection Qualifiers: Urinary tract infection type: site unspecified Hematuria presence: with hematuria Qualified Code(s): N39.0 - Urinary tract infection, site not specified Discharge ED Provider: Sabino Giraldo General Adult HPI General Chief complaint: Altered Mental Status Stated complaint: Decrease responsivess/possible UTI Time Seen by Provider: 09/06/23 09:39 History of Present Illness HPI narrative: This 78-year-old male with a history of advanced dementia on hospice for dementia presents to the emergency department with concerns of altered mental status, possible urinary tract infection. Family at bedside including patient's and daughters states that patient is on hospice for advancing dementia, but otherwise has been relatively healthy. No heart attack or stroke. Patient became increasingly altered yesterday after receiving morphine for what they suspected was abdominal pain potentially secondary to urinary tract infection. Patient has regular bowel movements and is on a bowel regimen. EMS reports patient was breathing very slowly and had hypoxia on initial evaluation requiring oxygen in transport. Patient does not have history of lung or cardiac pathology. Family denies any major surgeries. Patient is unable to provide any history or review of systems at this time. Family would like to pursue work-up for possible infection and other causes of his decreased level of responsiveness. Patient is DNR, DNI. Related Data Home Medications Medication Instructions Recorded Confirmed aspirin 81 mg tablet,delayed 81 mg PO DAILY STENT 10/08/19 09/06/23 release levothyroxine 50 mcg tablet 50 mcg PO DAILY THYROID 10/08/19 09/06/23 omeprazole 20 mg capsule,delayed 20 mg PO DAILY ACID REFLUX 10/08/19 09/06/23 release citalopram 20 mg tablet 20 mg PO HS Depression 12/16/20 09/06/23 donepezil 10 mg disintegrating 10 mg PO HS DEMENTIA 12/16/20 09/06/23 tablet quetiapine 50 mg tablet,extended 25 mg PO NEEDED PRN Anxiety 12/16/20 09/06/23 release 24 hr Previous Rx's Medication Instructions Recorded sennosides 8.6 mg-docusate sodium 1 tab PO BID 15 days #30 tabs 12/17/20 50 mg tablet Allergies Allergy/AdvReac Type Severity Reaction Status Date / Time No Known Allergies Allergy Verified 12/16/20 14:27 [facility] Disclaimer: The information contained in this section may have been updated after the patient was seen, as this information can be updated by other users. Social History Smoking Status: Never smoker alcohol intake: never current occupational status: retired Travel in the last 8 weeks: None household members: spouse housing: house ROS Obtained: Yes unobtainable due to mental status Physical Exam General General appearance: lethargic and obtunded Head Head exam: atraumatic and normocephalic Eye Eye exam: Present PERRL ENT ENT exam: Absent mucous membranes moist Neck Neck exam: Present normal inspection and full ROM Chest Chest inspection: Present symmetric chest wall rise; Absent tenderness Respiratory Respiratory exam: Present normal lung sounds bilaterally and other (bradypnea, requiring nasal cannula for O2 sat in mid-90s, was 85% on RA); Absent respiratory distress, wheezes or stridor Cardiovascular Cardiovascular exam: Present regular rate, normal rhythm and other (2+ pulses throughout) Abdominal Exam Abdominal exam: Present soft, tenderness (d
[2023-09-06 09:55] LABS: Basophils # 0.1 K/mm3 (0-0.2); Basophils % 0.4 % (0.1-2.0); Eosinophils # 0.3 K/mm3 (0.0-0.4); Eosinophils % 1.9 % (0.1-12.0); Hematocrit 42.5 % (42.0-52.0); Hemoglobin 13.4 g/dL (14.1-18.0); Lymphocytes % 17.3 % (10-50); Mean Corpuscular HGB Conc 31.5 g/dL (31.8-35.4); Mean Corpuscular Hemoglobin 30.2 pg (27.0-31.2); Mean Corpuscular Volume 95.9 fl (80-94); Monocytes % 5.8 % (1.7-9.3); Neutrophils % 74.6 % (37.0-80.0); Platelet Count 232 K/mm3 (142-424); Red Blood Count 4.44 M/mm3 (4.60-6.20); Red Cell Distribution Width 14.8 % (11.5-17.5); White Blood Count 17.4 K/mm3 (4.8-10.8)
[2023-09-06 09:58] LABS: Appearance,Urine SL CLOUDY (Clear); Blood, Urine 2+ (Negative); Color,Urine ORANGE (Yellow); Glucose,Urine (UA) TRACE (Negative); Ketones,Urine Negative (Negative); Leukocyte Esterase,Urine 2+ (Negative); Microscopic, Urine URINE MICROSCOPIC (MICROSCOPIC); Nitrate,Urine POSITIVE (Negative); Protein,Urine 3+ (Negative); Specific Gravity, Urine >= 1.030 (1.005-1.030)
[2023-09-06 10:00] LABS: VBG Base Excess -1.8 mmol/L (-2.4-2.3); VBG HCO3 24.8 mmol/L (23-30); VBG Oxygen Saturation 97.1 % (50-70); VBG PCO2 53.1 mmol/L (35-51); VBG PH 7.29 mmol/L (7.31-7.41); VBG Total CO2 26.4 mmol/L (23-27)
[2023-09-06 10:05] LABS: MANUAL DIFFERENTIAL MANUAL DIFFERENTIAL (MANUAL DIFF)
[2023-09-06 10:07] LABS: Alanine Aminotransferase 19 U/L (12-78); Albumin Level 4.2 g/dl (3.5-5.0); Albumin/Globulin Ratio 0.9 (1.1-1.8); Alkaline Phosphatase 76 U/L (38-126); Anion Gap 12.4 mEq/L (5-15); Aspartate Amino Transferase 28 U/L (17-59); Blood Urea Nitrogen 20 mg/dl (9-20); Calcium 8.9 mg/dl (8.4-10.2); Carbon Dioxide 29 mmol/L (22.0-30.0); Creatinine Clearance Estimated 35 mL/min (50-200); Estimated Glomerular Filt Rate 34 ml/min (>60); GFR (African American) 42 ML/MIN (>60); Globulin 4.6 g/dL (1.3-3.2); Glucose 98 mg/dl (74-100); Lactic Acid 1.5 mmol/L (0.7-2.1); Lipase 107 U/L (23-300); Potassium 4.4 mmoL/L (3.5-5.1); Sodium 142 mmol/L (136-145); Total Protein,Serum 8.8 g/dl (6.3-8.2)
[2023-09-06 10:09] LABS: Bilirubin,Urine 1+ (Negative)
[2023-09-06 10:15] LABS: NT Pro Brain Natriuretic Pep. 1770 pg/mL (0-450)
[2023-09-06 10:17] LABS: Bacteria,Urine 2+ /lpf; Squamous Epithelial Cell,Urine Occasional #/hpf (0-5)
[2023-09-06 10:19] LABS: Chloride 105 mmol/L (98-107); Troponin I 0.02 ng/ml (0.00-0.034)
[2023-09-06 10:33] LABS: Activated Partial Thrombo Time 35.1 seconds (22.8-30.6); INR 1.03 (0.9-1.1); Prothrombin Time 11.1 seconds (10.1-12.5)
--- NOTE | 2023-09-06 10:36 | EXP.PHA.CONS ---
Pharmacy Consult Date: 09/06/23 Time: 10:36 Referring provider: DR. GROSSMAN Reason for Consult:: VANCOMYCIN DOSING Allergies Allergy/AdvReac Type Severity Reaction Status Date / Time No Known Allergies Allergy Verified 12/16/20 14:27 Home Medications Medication Instructions Recorded Confirmed Type aspirin 81 mg tablet,delayed 81 mg PO DAILY STENT 10/08/19 12/16/20 History release levothyroxine 50 mcg tablet 50 mcg PO DAILY THYROID 10/08/19 12/16/20 History omeprazole 20 mg capsule,delayed 20 mg PO DAILY ACID REFLUX 10/08/19 12/16/20 History release citalopram 20 mg tablet 20 mg PO HS Depression 12/16/20 12/16/20 History donepezil 10 mg disintegrating 10 mg PO HS DEMENTIA 12/16/20 12/16/20 History tablet quetiapine 50 mg tablet,extended 25 mg PO NEEDED PRN Anxiety 12/16/20 12/16/20 History release 24 hr sennosides 8.6 mg-docusate sodium 1 tab PO BID 15 days #30 tabs 12/17/20 Rx 50 mg tablet New Prescriptions to Start Prescriptions: Height: 1.83 m Weight: 77.111 kg Laboratory Results:: Laboratory Results - last 24 hr 09/06/23 09:32: WBC 17.4 H, RBC 4.44 L, Hgb 13.4 L, Hct 42.5, MCV 95.9 H, MCH 30.2, MCHC 31.5 L, RDW 14.8, Plt Count 232, MPV 8.0, Neut % (Auto) 74.6, Lymph % (Auto) 17.3, [place] % (Auto) 5.8, Eos % (Auto) 1.9, Baso % (Auto) 0.4, Neut # (Auto) 13.0 H, Lymph # (Auto) 3.0, [place] # (Auto) 1.0, Eos # (Auto) 0.3, Baso # (Auto) 0.1, Sodium 142, Potassium 4.4, Chloride 105, Carbon Dioxide 29, Anion Gap 12.4, BUN 20, Creatinine 1.90 H, Estimated Creat Clear 35, Estimated GFR 34 L, Est GFR ( Amer) 42 L, Glucose 98, Lactate 1.5, Calcium 8.9, Total Bilirubin 1.0, AST 28, ALT 19, Alkaline Phosphatase 76, NT-Pro-B Natriuret Pep 1770 H, Total Protein 8.8 H, Albumin 4.2, Globulin 4.6 H, Albumin/Globulin Ratio 0.9 L, Lipase 107 09/06/23 09:43: VBG pH 7.29 L, VBG pCO2 53.1 H, VBG pO2 96.0 H, VBG HCO3 24.8, VBG Total CO2 26.4, VBG O2 Saturation 97.1 H, VBG Base Excess -1.8 09/06/23 09:54: Urine Color [place], Urine Appearance Sl cloudy, Urine pH 5.0, Ur Specific [place] >= 1.030, Urine Protein 3+, Urine Glucose (UA) Trace, Urine Ketones Negative, Urine Blood 2+, Urine Nitrate Positive, Urine Bilirubin 1+ A, Urine Urobilinogen 4.0, Ur Leukocyte Esterase 2+ A, Urine RBC 10-20, Urine WBC 10-20, Ur Squamous Epith Cells Occasional, Urine Bacteria 2+ Assessment and Plan Assessment and plan all Dx Assessment and Plan for all problems:: Pharmacokinetic dosing service Objective: Patient: Floor: Age: 78 yo Serum creatinine: 1.90 mg/dL Height: 72.0 Inches Weight (kg): 77.1 Assessment: IBW (kg): 77.60 Dosing wt(kg): 77.1 Estimated Creatinine clearance (ml/min): 34.9 CRCL method: Cockcroft and Gault using ibw(default). Drug selected: Vancomycin Loading dose (mg): Vd (liters): 57.8 (factor used: 0.75 L/kg) Siddhartha (hr-1): 0.033 Half life (hrs): 21.00 CLvanco=?? 1.907 L/hr Recommended dose: 1500 mg Interval: 36 hrs Infusion time (hrs): 2.0 Predicted peak (mcg/mL): 36.1 Predicted trough (mcg/mL): 11.76 Total body weight is being used for vancomycin dosing. Recommendations: Give Vancomycin 1500 mg q 36 hrs with an expected Cpeak of 36.1 mcg/ml and an expected Ctrough of 11.76 mcg/ml AUC 0-24 /MARILYN Data: MARILYN 0.5 mcg/mL:?? AUC/MARILYN:? 1048.8 MARILYN 1.0 mcg/mL:?? AUC/MARILYN:? 524.4 --------- MARILYN 1.5 mcg/mL:?? AUC/MARILYN:? 349.6 MARILYN 2.0 mcg/mL:?? AUC/MARILYN:? 262.2 Thank you for the consult, will continue to follow. -YAMILETH VALERA, SUED
--- NOTE | 2023-09-06 11:05 | PC.NURSE ---
Pt returned from RAD via stretcher
--- NOTE | 2023-09-06 11:24 | PC.NURSE ---
Dr. Giraldo would like to admit pt. Dr Rojas reports he is not on-call for Dr. Brady admits at this time. Per office, Dr. Brady is out of the office today. Called registration to have Dr. Brady paged, they reports Dr. Skinner is on-call for him tonight.
--- NOTE | 2023-09-06 11:30 | PC.NURSE ---
Dr. Giraldo at BS to update family on POC
--- NOTE | 2023-09-06 11:31 | PC.NURSE ---
Dr. Giraldo speaking with Dr. Brady
--- NOTE | 2023-09-06 11:34 | PC.NURSE ---
notified care management of admission
--- NOTE | 2023-09-06 11:35 | PC.NURSE ---
attempted to make contact with yaquelin from hospice. no answer. will try again. phone number [phone]
--- NOTE | 2023-09-06 12:10 | PC.NURSE ---
report called to ramírez on second floor
[2023-09-06 12:21] LABS: Eosinophils % 2 % (0-3); Lymphocytes % 15 % (10-50); Monocytes % 5 % (2-9); Neutrophils % 78 % (42-76); Platelet Estimate Normal; RBC Morphology Normal; Total Cells Counted 100
--- NOTE | 2023-09-06 12:35 | SW/DCPLANNER ---
Addendum entered by Hansa Mcclain 09/09/23 09:21: I have updated Amy w/ [facility] that patient will return home today. Addendum entered by Hansa Mcclain 09/09/23 09:19: Per family they prefer to return home w/ patient and [facility] services. I will fax updated patient information to [facility]. Addendum entered by Hansa Mcclain 09/09/23 09:07: I have attempted to contact patient's regarding discharge plans. No answer at this time and no VM set up. I will continue to speak w/ this AM: per Dr Brady patient is ready for discharge today. Addendum entered by Hansa Mcclain 09/06/23 14:33: I spoke w/ Anna from [facility] and she stated that patient's stay is related to patient's Hospice diagnosis. Anna also stated that alternative phone number for Hospice is [phone] since their phones are down. I have faxed updated patient information to Anna w/ [facility]. Original Note: I have made several attempts to contact [facility] regarding hospital admission: no answer at this time. Updated patient information has been faxed to [facility].
--- NOTE | 2023-09-06 12:39 | PC.NURSE ---
snack steward on second floor states she will notify staff pt is ready for transport.
--- NOTE | 2023-09-06 12:49 | PC.NURSE ---
green top sent to lab at this time for 2nd troponin
--- NOTE | 2023-09-06 12:58 | PC.NURSE ---
arrived to floor by stretcher from ED
[2023-09-06 13:16] LABS: Troponin I 0.03 ng/ml (0.00-0.034)
[2023-09-06 17:12] LABS: Troponin I 0.03 ng/ml (0.00-0.034)
--- NOTE | 2023-09-06 17:14 | EXP.HP ---
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 Over the past couple of days he had increasing confusion, dark yellow urine. We called in Cipro yesterday afternoon but communication difficulties with hospice resulted in this prescription not being filled and the patient began to decline overnight with diminished p.o. intake. This morning he was obtunded. Brought to the ER. Met sepsis criteria with elevated heart rate, organ dysfunction and evidence of infection from urinalysis. Was given Zosyn in the ER. Admitted to floor for further therapy. I met with family and discussed case this afternoon on rounds PFSH PFS Disclaimer: The information contained in this section may have been updated after the patient was seen, as this information can be updated by other users. Medical History (Updated 09/06/23 @ 13:43 by Nicole Langford RN) History of left heart catheterization (LHC) Family History (Updated 09/06/23 @ 13:44 by Nicole Langford RN) No significant family history Social History (Updated 09/06/23 @ 13:44 by Nicole Langford RN) Smoking Status: Former smoker tobacco type: cigarettes packs per day: 1 alcohol intake: never current occupational status: retired Travel in the last 8 weeks: None household members: spouse housing: house Review of Systems Review of Systems Review of systems:: unable to obtain Meds Home Medications and Allergies Home Medications Medication Instructions Recorded Confirmed Type aspirin 81 mg tablet,delayed 81 mg PO DAILY STENT 10/08/19 09/06/23 History release levothyroxine 50 mcg tablet 50 mcg PO DAILY THYROID 10/08/19 09/06/23 History omeprazole 20 mg capsule,delayed 20 mg PO DAILY ACID REFLUX 10/08/19 09/06/23 History release citalopram 20 mg tablet 20 mg PO HS Depression 12/16/20 09/06/23 History donepezil 10 mg disintegrating 10 mg PO HS DEMENTIA 12/16/20 09/06/23 History tablet quetiapine 50 mg tablet,extended 25 mg PO NEEDED PRN Anxiety 12/16/20 09/06/23 History release 24 hr sennosides 8.6 mg-docusate sodium 1 tab PO BID 15 days #30 tabs 12/17/20 09/06/23 Rx 50 mg tablet New Prescriptions to Start Prescriptions: Allergies Allergy/AdvReac Type Severity Reaction Status Date / Time No Known Allergies Allergy Verified 12/16/20 14:27 Exam Data for Last 24 hours Vital signs and Labs for Last 24 Hours: Temp Pulse Resp BP Pulse Ox O2 Del Method O2 Flow Rate 98.7 F 62 20 117/67 97 Nasal Cannula 3 09/06/23 13:33 09/06/23 13:33 09/06/23 13:33 09/06/23 13:33 09/06/23 13:33 09/06/23 14:50 09/06/23 14:50 Laboratory Results - last 24 hr 09/06/23 09:32: WBC 17.4 H, RBC 4.44 L, Hgb 13.4 L, Hct 42.5, MCV 95.9 H, MCH 30.2, MCHC 31.5 L, RDW 14.8, Plt Count 232, MPV 8.0, Neut % (Auto) 74.6, Lymph % (Auto) 17.3, [place] % (Auto) 5.8, Eos % (Auto) 1.9, Baso % (Auto) 0.4, Neut # (Auto) 13.0 H, Lymph # (Auto) 3.0, [place] # (Auto) 1.0, Eos # (Auto) 0.3, Baso # (Auto) 0.1, Total Counted 100, Neutrophils % (Manual) 78 H, Lymphocytes % (Manual) 15, Monocytes % (Manual) 5, Eosinophils % (Manual) 2, Platelet Estimate Normal, RBC Morphology Normal, PT 11.1, INR 1.03, APTT 35.1 H, Sodium 142, Potassium 4.4, Chloride 105, Carbon Dioxide 29, Anion Gap 12.4, BUN 20, Creatinine 1.90 H, Estimated Creat Clear 35, Estimated GFR 34 L, Est GFR ( Amer) 42 L, Glucose 98, Lactate 1.5, Calcium 8.9, Total Bilirubin 1.0, AST 28, ALT 19, Alkaline Phosphatase 76, Troponin I 0.02, NT-Pro-B Natriuret Pep 1770 H, Total Protein 8.8 H, Albumin 4.2, Globulin 4.6 H, Albumin/Globulin Ratio 0.9 L, Lipase 107 09/06/23 09:43: VBG pH 7.29 L, VBG pCO2 53.1 H, VBG pO2 96.0 H, VBG HCO3 24.8, VBG Tot
--- NOTE | 2023-09-06 23:08 | PC.NURSE ---
AX TEMP 101. HAS TYLENOL PO BUT PATIENT UNABLE TO SWALLOW AT THIS TIME. NPO. DR ASH PAGED AT [phone].
[2023-09-07] VITALS: BP 85/52; PULSE 74; RESP 18; TEMP 38.5; O2SAT 96
[2023-09-07 02:38] VITALS: TEMP 37.7
[2023-09-07 04:00] VITALS: BP 109/58; PULSE 71; RESP 18; TEMP 37.6; O2SAT 96; BMI 25.6
--- NOTE | 2023-09-07 06:59 | PC.NURSE ---
more alert. tries to verbally respond at times. has had a fever most of night. received tylenol suppository at 2330. last temp 99.7 ax. purewick in use. urine concentrated.
[2023-09-07 07:24] VITALS: BP 114/76; PULSE 79; RESP 18; TEMP 37.2; O2SAT 97
--- NOTE | 2023-09-07 09:34 | EXP.ACUTE.PN ---
Subjective *Date: 09/07/23 *Time: 09:34 Interval history: Patient is more alert this morning. Opens his eyes and spontaneously moves his extremities. Nursing staff reports that he was verbally active during his bath. He will not answer questions however. Medical Exam Vital signs and Labs for Last 24 Hours: Vital Signs Temp Pulse Pulse Resp BP BP Pulse Ox 09/07/23 08:00 09/07/23 07:24 99.0 F 79 18 114/76 97 09/07/23 06:34 09/07/23 05:00 09/07/23 04:00 99.7 F H 71 18 109/58 L 96 09/07/23 03:00 09/07/23 02:38 100 F H 09/07/23 01:00 09/07/23 00:00 101.3 F H 74 18 85/52 L 96 09/06/23 23:30 101 F H 09/06/23 23:54 99 F 09/06/23 22:52 09/06/23 21:00 09/06/23 20:00 100.3 F H 83 20 138/77 96 09/06/23 19:55 96 09/06/23 18:24 09/06/23 17:00 09/06/23 14:50 09/06/23 13:00 09/06/23 13:33 98.7 F 62 20 117/67 97 09/06/23 12:45 99.0 F 71 9 L 117/63 09/06/23 12:30 77 10 L 118/72 95 09/06/23 12:00 75 9 L 95 09/06/23 11:30 78 14 100/59 L 97 09/06/23 11:23 85 16 113/67 96 09/06/23 10:35 80 14 97/68 L 95 09/06/23 10:00 82 15 115/71 94 L 09/06/23 09:55 100.1 F H 86 12 113/69 95 O2 Del Method O2 Flow Rate 09/07/23 08:00 Nasal Cannula 2 09/07/23 07:24 Nasal Cannula 09/07/23 06:34 Nasal Cannula 2 09/07/23 05:00 Nasal Cannula 2 09/07/23 04:00 Nasal Cannula 3 09/07/23 03:00 Nasal Cannula 2 09/07/23 02:38 09/07/23 01:00 Nasal Cannula 2 09/07/23 00:00 Nasal Cannula 3 09/06/23 23:30 09/06/23 23:54 09/06/23 22:52 Nasal Cannula 2 09/06/23 21:00 Nasal Cannula 2 09/06/23 20:00 Nasal Cannula 3.5 09/06/23 19:55 Nasal Cannula 2 09/06/23 18:24 Nasal Cannula 3 09/06/23 17:00 Nasal Cannula 3 09/06/23 14:50 Nasal Cannula 3 09/06/23 13:00 Nasal Cannula 3 09/06/23 13:33 Nasal Cannula 09/06/23 12:45 Nasal Cannula 09/06/23 12:30 Nasal Cannula 2 09/06/23 12:00 Nasal Cannula 2 09/06/23 11:30 09/06/23 11:23 09/06/23 10:35 Nasal Cannula 2 09/06/23 10:00 Nasal Cannula 2 09/06/23 09:55 Nasal Cannula 2 Intake and Output 09/06/23 09/07/23 09/07/23 19:59 03:59 11:59 Intake Total 235 / 1035 800 / 1035 0 / 1035 Output Total 1 / 801 800 / 801 Balance 235 / 234 799 / 234 -800 / 234 Intake: Intake, Oral Amount 0 / 0 Intake, Total IV Amount 800 / 800 0.9 % Sodium Chloride 1000ML 1, 800 / 800 000 ml @ 75 mls/hr IV .[id number] [facility] Rx#:[id number] Infusion Intake 235 / 235 0.9 % Sodium Chloride 1000ML 1, 185 / 185 000 ml @ 75 mls/hr IV .[id number] [facility] Rx#:[id number] Ceftriaxone 1 gm 1 gm In 0.9 % 50 / 50 Sodium Chloride 50 ml @ 100 mls /hr IV Q24H [facility] Rx#:[id number] Output: Output, Urine Amount 1 / 801 800 / 801 Other: Number of Unmeasured Voids 1 0 Weight 166 lb 4 oz 169 lb Patient Weight 09/07/23 11:59 Weight 169 lb Laboratory Results - last 24 hr 09/06/23 09:32: WBC 17.4 H, RBC 4.44 L, Hgb 13.4 L, Hct 42.5, MCV 95.9 H, MCH 30.2, MCHC 31.5 L, RDW 14.8, Plt Count 232, MPV 8.0, Neut % (Auto) 74.6, Lymph % (Auto) 17.3, Cache % (Auto) 5.8, Eos % (Auto) 1.9, Baso % (Auto) 0.4, Neut # (Auto) 13.0 H, Lymph # (Auto) 3.0, Cache # (Auto) 1.0, Eos # (Auto) 0.3, Baso # (Auto) 0.1, Total Counted 100, Neutrophils % (Manual) 78 H, Lymphocytes % (Manual) 15, Monocytes % (Manual) 5, Eosinophils % (Manual) 2, Platelet Estimate Normal, RBC Morphology Normal, PT 11.1, INR 1.03, APTT 35.1 H, Sodium 142, Potassium 4.4, Chloride 105, Carbon Dioxide 29, Anion Gap 12.4, BUN 20, Creatinine 1.90 H, Estimated Creat Clear 35, Estimated GFR 34 L, Est GFR ( Amer) 42 L, Glucose 98, Lactate 1.5, Calcium 8.9, Total Bilirubin 1.0, AST 28, ALT 19, Alkaline Phosphatase 76, Troponin I 0.02, NT-Pro-B Natriuret Pep 1770 H, Total Pro
[2023-09-07 15:15] VITALS: BP 102/47; PULSE 79; RESP 18; TEMP 37.2; O2SAT 97
[2023-09-07 20:00] VITALS: BP 120/72; PULSE 89; RESP 19; TEMP 37.9; O2SAT 90
--- NOTE | 2023-09-07 20:43 | PC.NURSE ---
IV SITE TO LAC VERY POSITIONAL. SITE SALINE LOCKED. 2ND IV PLACED LFA. IVFs RESUMED.
[2023-09-08 04:00] VITALS: BP 128/86; PULSE 80; RESP 19; TEMP 37.5; O2SAT 93; BMI 25.2
--- NOTE | 2023-09-08 06:12 | PC.NURSE ---
CONTINUES TO RUN LOW GRADE TEMP. TOTAL DEPENDENCE ON STAFF FOR TURNING AND REPOSITIONING. DOES NOT APPEAR TO BE IN PAIN. FAMILY MEMBERS X 3 VISITED LAST NIGHT. IVFs INFUSING WITHOUT DIFFICULTY. MALE PUREWICK IN USE, UOP DARK ORANGE. NON VERBAL. OPENS EYES SPONTANEOUSLY TO TOUCH.
[2023-09-08 07:25] LABS: Basophils % 0.3 % (0.1-2.0); Eosinophils # 0.4 K/mm3 (0.0-0.4); Eosinophils % 4.2 % (0.1-12.0); Hematocrit 34.4 % (42.0-52.0); Hemoglobin 10.9 g/dL (14.1-18.0); Lymphocytes % 22.5 % (10-50); Mean Corpuscular HGB Conc 31.9 g/dL (31.8-35.4); Mean Corpuscular Hemoglobin 30.4 pg (27.0-31.2); Mean Corpuscular Volume 95.6 fl (80-94); Mean Platelet Volume 7.9 fl (7.4-10.4); Monocytes # 0.5 K/mm3 (0.1-1.0); Platelet Count 198 K/mm3 (142-424); Red Cell Distribution Width 14.8 % (11.5-17.5)
[2023-09-08 07:32] LABS: Chloride 111 mmol/L (98-107); Potassium 3.6 mmoL/L (3.5-5.1); Sodium 141 mmol/L (136-145)
[2023-09-08 07:35] LABS: Anion Gap 10.6 mEq/L (5-15); Blood Urea Nitrogen 16 mg/dl (9-20); Carbon Dioxide 23 mmol/L (22.0-30.0); Creatinine Clearance Estimated 50 mL/min (50-200); Estimated Glomerular Filt Rate 53 ml/min (>60); GFR (African American) 65 ML/MIN (>60)
[2023-09-08 07:36] LABS: Calcium 7.8 mg/dl (8.4-10.2); Glucose 103 mg/dl (74-100)
[2023-09-08 07:38] VITALS: BP 106/68; PULSE 68; RESP 18; TEMP 36.6; O2SAT 95
--- NOTE | 2023-09-08 08:37 | EXP.ACUTE.PN ---
Subjective *Date: 09/08/23 *Time: 08:37 Interval history: Patient overnight is about the same, alert, however will not follow commands. Did have labs this morning. They are reviewed. Medical Exam Vital signs and Labs for Last 24 Hours: Vital Signs Temp Pulse Resp BP Pulse Ox O2 Del Method O2 Flow Rate 09/08/23 07:38 97.9 F 68 18 106/68 L 95 Room Air 09/08/23 06:38 Room Air 09/08/23 04:00 99.5 F 80 19 128/86 93 L Room Air 09/08/23 04:56 Room Air 09/08/23 03:00 Room Air 09/08/23 01:00 Room Air 09/07/23 22:58 Room Air 09/07/23 21:00 Room Air 09/07/23 20:00 100.2 F H 89 19 120/72 90 L Room Air 09/07/23 20:00 90 L Room Air 09/07/23 18:21 Room Air 09/07/23 17:00 Room Air 09/07/23 15:00 Room Air 09/07/23 13:00 Room Air 09/07/23 15:15 98.9 F 79 18 102/47 L 97 Room Air 09/07/23 11:00 Nasal Cannula 2 09/07/23 09:00 Nasal Cannula 2 Intake and Output 09/07/23 09/08/23 09/08/23 19:59 03:59 11:59 Intake Total 587 / 2819 978 / 2819 1254 / 2819 Output Total 0 / 0 0 / 0 Balance 587 / 2819 978 / 2819 1254 / 2819 Intake: Intake, Oral Amount 587 / 1367 780 / 1367 Intake, Total IV Amount 978 / 1452 474 / 1452 0.9 % Sodium Chloride 1000ML 1, 978 / 1452 474 / 1452 000 ml @ 75 mls/hr IV .[id number] [facility] Rx#:[id number] Output: Output, Urine Amount 0 / 0 0 / 0 Other: Number of Unmeasured Voids 0 Weight 166 lb 11.2 oz Patient Weight 09/08/23 11:59 Weight 166 lb 11.2 oz Laboratory Results - last 24 hr 09/08/23 07:10: WBC 9.0 D, RBC 3.60 L, Hgb 10.9 L, Hct 34.4 L, MCV 95.6 H, MCH 30.4, MCHC 31.9, RDW 14.8, Plt Count 198, MPV 7.9, Neut % (Auto) 67.0, Lymph % (Auto) 22.5, Lawrence % (Auto) 6.0, Eos % (Auto) 4.2, Baso % (Auto) 0.3, Neut # (Auto) 6.0, Lymph # (Auto) 2.0, Lawrence # (Auto) 0.5, Eos # (Auto) 0.4, Baso # (Auto) 0.0, Sodium 141, Potassium 3.6, Chloride 111 H, Carbon Dioxide 23, Anion Gap 10.6, BUN 16, Creatinine 1.30 H D, Estimated Creat Clear 50, Estimated GFR 53 L, Est GFR ( Amer) 65 D, Glucose 103 H, Calcium 7.8 L I & O for Labs for Last 24 Hours: Intake & Output 09/05/23 09/06/23 09/07/23 09/08/23 11:59 11:59 11:59 11:59 Intake Total 1035 / 1035 2819 / 2819 Output Total 801 / 801 0 / 0 Balance 234 / 234 2819 / 2819 Weight 170 lb 0.01 oz 169 lb 166 lb 11.2 oz Comment:: Patient is alert, will follow movements with his eyes but does not spontaneously initiate conversation and does not answer questions or follow commands. Withdraws to painful stimuli. Abdomen soft -but does grimace with right flank palpation. Heart rate regular. Lungs have fairly good air entry. Extremities are warm and well-perfused. Assessment and Plan *Assessment and plan (1) Altered mental status: Status: Acute Qualifiers: Altered mental status type: coma Coma depth: Manuelito coma 3-8 Coma timing: in the field (EMT or ambulance) Qualified Code(s): R40.2431 - Kiana coma scale score 3-8, in the field [EMT or ambulance] Category: Medical Code(s): R41.82 - Altered mental status, unspecified (2) Sepsis: Status: Acute Qualifiers: Sepsis acute organ dysfunction status: unspecified Sepsis type: sepsis due to unspecified organism Qualified Code(s): A41.9 - Sepsis, unspecified organism Category: Medical Code(s): A41.9 - Sepsis, unspecified organism (3) Urinary tract infection: Status: Acute Qualifiers: Hematuria presence: with hematuria Urinary tract infection type: site unspecified Qualified Code(s): N39.0 - Urinary tract infection, site not specified; R31.9 - Hematuria, unspecified Category: Medical Code(s): N39.0 - Urinary tract infection, site not specified (4) Dementia: Status: Chronic Qualifiers: Dementia behavioral disturbance: without beh
--- NOTE | 2023-09-08 08:39 | XR_ITS ---
PROCEDURE INFORMATION: Exam: XR Complete Acute Abdomen Series Including Chest Exam date and time: 09/08/2023 8:39 AM Age: 78 years old Clinical indication: Abdominal pain; Acute; Additional info: Flatplate for right side abdominal pain TECHNIQUE: Imaging protocol: Radiologic exam. Complete acute abdomen series, including 2 or more views of the abdomen and a single view chest. COMPARISON: CR XR CHEST PORTABLE 09/06/2023 11:19 AM FINDINGS: Lungs: Hypoinflation with interstitial prominence. Localized right upper lobe airspace disease, which could represent infiltrate in the appropriate clinical setting. Pleural spaces: No significant pleural effusion. Heart/Mediastinum: No cardiomegaly. Gastrointestinal tract: Mild bowel dilatation and prominent stool. Organs: Cholelithiasis, which was better visualized on CT. Vasculature: Subcentimeter pelvic calcifications, presumably vascular in etiology. Calcification of the thoracic aorta. Bones/joints: Degenerative change. 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 IMPRESSION: 1. Mild bowel dilatation and prominent stool. 2. Localized right upper lobe airspace disease, which could represent infiltrate in the appropriate clinical setting.
[2023-09-08 15:33] VITALS: BP 138/70; PULSE 63; RESP 18; TEMP 36.6; O2SAT 93
--- NOTE | 2023-09-08 18:55 | PC.NURSE ---
NO ACUTE CHANGES SINCE PREVIOUS ASSESSMENT. 1 BM THIS SHIFT AFTER ENEMA ADMIN. PT HAS APPEARED COMFORTABLE T/O SHIFT. FAMILY REMAINED AT BEDSIDE FOR MAJORITY OF THE DAY.
[2023-09-08 20:00] VITALS: BP 134/75; PULSE 73; RESP 20; TEMP 37.6; O2SAT 94
[2023-09-09 04:00] VITALS: BP 124/62; PULSE 69; RESP 18; TEMP 37.4; O2SAT 92; BMI 25.4
--- NOTE | 2023-09-09 04:24 | PC.NURSE ---
Pt oriented to self, Pt is resistive to care and moans and grunts when turned and changed, Pt has rested well for most of the shift, Pt was restless around 0300 and received pain medication, Pt is resting with eyes closed and expresses no needs at this time
[2023-09-09 08:00] VITALS: BP 161/90; PULSE 76; RESP 18; TEMP 37.7; O2SAT 92
--- NOTE | 2023-09-09 08:49 | EXP.PHA.PN ---
Subjective *Date: 09/09/23 *Time: 08:49 Medical Exam Vital signs and Labs for Last 24 Hours: Vital Signs Temp Pulse Resp BP Pulse Ox O2 Del Method 09/09/23 08:00 99.8 F H 76 18 161/90 H 92 L Room Air 09/09/23 07:00 Room Air 09/09/23 05:00 Room Air 09/09/23 04:00 99.3 F 69 18 124/62 92 L Room Air 09/09/23 03:00 Room Air 09/09/23 01:00 Room Air 09/08/23 23:00 Room Air 09/08/23 20:45 Room Air 09/08/23 20:00 Room Air 09/08/23 20:00 99.6 F 73 20 134/75 94 L Room Air 09/08/23 18:52 Room Air 09/08/23 17:00 Room Air 09/08/23 15:33 97.9 F 63 18 138/70 93 L Room Air 09/08/23 15:00 Room Air 09/08/23 13:00 Room Air 09/08/23 11:00 Room Air 09/08/23 09:00 Room Air Intake and Output 09/08/23 09/09/23 09/09/23 23:59 07:59 15:59 Intake Total 1135 / 2659 1019 / 1019 Output Total 200 / 750 700 / 700 Balance 935 / 1909 319 / 319 Intake: Intake, Oral Amount 320 / 1370 0 / 0 Intake, Total IV Amount 1019 / 1019 0.9 % Sodium Chloride 1000ML 1, 1019 / 1019 000 ml @ 75 mls/hr IV .[id number] [facility] Rx#:[id number] Infusion Intake 815 / 815 0.9 % Sodium Chloride 1000ML 1, 815 / 815 000 ml @ 75 mls/hr IV .[id number] [facility] Rx#:[id number] Output: Output, Urine Amount 200 / 750 700 / 700 Other: Number of Unmeasured Voids 1 0 Number of Bowel Movements 1 Weight 75.977 kg Patient Weight 09/09/23 23:59 Weight 75.977 kg I & O for Labs for Last 24 Hours: Intake & Output 09/06/23 09/07/23 09/08/23 09/09/23 23:59 23:59 23:59 23:59 Intake Total 235 / 1035 2365 / 2365 2659 / 2659 1019 / 1019 Output Total 800 / 800 750 / 750 700 / 700 Balance 234 / 1034 1565 / 1565 1909 / 1909 319 / 319 Weight 75.41 kg 76.657 kg 75.614 kg 75.977 kg Microbiology Reports for the Last 24 Hours: Microbiology 09/06/23 10:00 Blood Blood Culture - Preliminary NO GROWTH AFTER 48 HOURS 09/06/23 09:32 Blood Blood Culture - Preliminary NO GROWTH AFTER 48 HOURS The patient's infection will respond to the chosen ABx?: Yes Is the patient receiving the right drug, dose, and route?: Yes Could a more targeted ABx be ordered?: No (WBC WNL, DECREASED FROM ADMISSION, AWAITING CULTURES.)
[2023-09-09 09:21] VITALS: BMI 25.3
--- NOTE | 2023-09-09 09:24 | EXP.DC.SUM ---
General Admission date:: 09/06/23 Discharge date: 09/09/23 HPI HPI HPI: 78-year-old male with long history of dementia with behavioral disturbances and functional decline with senile cachexia and has been under hospice care for several months at home. Over the past couple of days he had increasing confusion, dark yellow urine. We called in Cipro yesterday afternoon but communication difficulties with hospice resulted in this prescription not being filled and the patient began to decline overnight with diminished p.o. intake. This morning he was obtunded. Brought to the ER. Met sepsis criteria with elevated heart rate, organ dysfunction and evidence of infection from urinalysis. Was given Zosyn in the ER. Admitted to floor for further therapy. I met with family and discussed case this afternoon on rounds Hospital Course Hospital Course Hospital Course: Patient was admitted, family reaffirmed his DNR/DNI status, but did wish fluids and antibiotics. He was given ceftriaxone. Blood cultures are negative, urine cultures are pending at the time of discharge. Ceftriaxone temporarily improved his fever curve and caused resolution of his leukocytosis. He also improved vis-?-vis alertness and ability to take food. Family was happy with improvement and wished to be discharged home with ongoing hospice care today. We will continue cefdinir orally as we await final culture results. I will not schedule follow-up in my office as he is completely homebound. Exam Data for Last 24 hours Vital signs and Labs for Last 24 Hours: Temp Pulse Resp BP Pulse Ox O2 Del Method O2 Flow Rate 99.8 F H 76 18 161/90 H 92 L Room Air 2 09/09/23 08:00 09/09/23 08:00 09/09/23 08:00 09/09/23 08:00 09/09/23 08:00 09/09/23 08:00 09/07/23 11:00 I & O for Last 24 hours: Intake & Output 09/06/23 09/07/23 09/08/23 09/09/23 11:59 11:59 11:59 11:59 Intake Total 1035 / 1035 2819 / 2819 2424 / 2424 Output Total 801 / 801 0 / 0 1450 / 1450 Balance 234 / 234 2819 / 2819 974 / 974 Weight 170 lb 0.01 oz 169 lb 166 lb 11.2 oz 167 lb 5.294 oz Microbiology Reports for the Last 24 Hours: Microbiology 09/06/23 10:00 Blood Blood Culture - Preliminary NO GROWTH AFTER 48 HOURS 09/06/23 09:32 Blood Blood Culture - Preliminary NO GROWTH AFTER 48 HOURS Constitutional Constitutional: chronically ill appearing and obtunded Comments: Patient is vastly more alert than on admission, will not follow commands however, does respond to tactile stimuli, has been eating with good encouragement from his family. Essentially nonverbal *Routine HEENT Exam Head: Present normocephalic Eye: Present EOMI and PERRL ENT: Present mucous membranes moist *Routine Neck Exam Neck: Present supple; Absent lymphadenopathy *Routine Respiratory Exam Respiratory: Present CTA bilaterally *Routine Cardiovascular Exam Cardiovascular: Present RRR *Routine Abdominal Exam Abdominal: Present soft and normoactive bowel sounds; Absent tenderness Comments: Tenderness from yesterday resolved after a good bowel movement *Routine Extremities Exam Extremities: Absent cyanosis, clubbing or edema *Routine Skin Exam Skin: Present warm; Absent rash *Routine Neurological Exam Neurological: Present alert Comments: Spontaneously moves all 4 extremities minimally. Results Data Completed and Pending Labs on day of discharge: Preliminary micro results at discharge 09/06/23 10:00 Blood Culture - Preliminary Blood NO GROWTH AFTER 48 HOURS 09/06/23 09:32 Blood Culture - Preliminary Blood NO GROWTH AFTER 48 HOURS DS: Diagnosis Discharge Diagnosis (1) Altered mental status: Status: Acute Code(s): R41.82 - Altered mental status, unspecified Qualifiers: Altered mental status type: coma Coma depth: Manuelito coma 3-8 Coma timing: in the field (EMT or ambulance) Qualified Cod
--- NOTE | 2023-09-09 09:36 | PC.NURSE ---
no appointment made for d/c due to patient being hospice
== END 2023-09-09 13:31 | disposition hospice, home (50) | DRG 872 ==
LOC: ER 11:35 → 2ND 11:40
PROVIDERS: Admitting Provider Internal Medicine Adolescent Medicine; Emergency Provider Emergency Medicine; PCP Internal Medicine Adolescent Medicine; Visit Provider Internal Medicine Adolescent Medicine
DX: A41.9 Sepsis, unspecified organism (principal); N39.0 Urinary tract infection, site not specified; R31.9 Hematuria, unspecified; Z87.891 Personal history of nicotine dependence; F03.90 Unspecified dementia, unspecified severity, without behavioral disturbance, psychotic disturbance, mood disturbance, and anxiety; Z66 Do not resuscitate
CPT/HCPCS: 36415; 70450; 71045; 71275; 74021; 74177; 80048; 80053; 81001; 82803; 83605; 83690; 83880; 84484; 85007; 85025; 85610; 85730; 87040; 87086; 93005; 99291; J0696; J2543; Q9967